=== PATIENT | female | born 2005 | race African-American/Black ===

== ENCOUNTER 2023-09-24 08:38 | Outpatient (CLI) | payer OTHER, SELFPAY | END 2023-09-24 08:39 | disposition home or self-care (01) | PROVIDERS: Visit Provider Family Medicine | DX: R10.9 Unspecified abdominal pain (principal) | CPT/HCPCS: A0425; A0427 ==

== ENCOUNTER 2023-09-24 09:13 | Observation (INO) | payer OTHER, SELFPAY ==
[2023-09-24] VITALS (16 sets, daily range): BP systolic 102–128; BP diastolic 57–81; PULSE 72–92; RESP 16–20; TEMP 36.6–36.7; O2SAT 99–100; BMI 22.3
--- NOTE | 2023-09-24 09:52 | ED_ITS ---
HPI - Abdominal Pain General Time Seen by Provider: 09:52 Date Seen: 09/24/23 Chief Complaint: Abdominal Pain Stated Complaint: Abdominal pain Time Seen by Provider: 09/24/23 09:51 Source: patient, EMS and RN notes reviewed Mode of arrival: EMS Limitations: no limitations History of Present Illness HPI narrative: This 18-year-old female was brought in from home by EMS for right-sided abdominal pain. It started overnight, disrupted sleep. She has noted no fevers or chills. She has urinated, noted no hematuria or changes with urination. She has never been sexually active. No prior history of abdominal surgeries, no history of ovarian cysts, on no contraceptives. Denies any nausea vomiting or diarrhea to date with this. Pain was severe, EMS gave her 50 mcg of fentanyl in route, improved. Pain was escalating after getting here. Will be giving her further fentanyl. She notes it is right-sided abdominal pain, worse in the lower abdomen. MD elicited complaint: abdominal pain Pertinent past history: none Related Data Patient : No Previous Rx's Medication Instructions Recorded acetaminophen 325 mg tablet 650 mg (2 x 325 mg) PO Q6H PRN 09/25/23 Pain #30 tabs ibuprofen 600 mg tablet 600 mg PO Q6H PRN Pain #30 tabs 09/25/23 oxycodone 5 mg tablet 5 mg PO Q4H PRN Pain 3 days #12 09/25/23 tabs simethicone 80 mg chewable tablet 160 mg (2 x 80 mg) PO Q4H PRN 09/25/23 Abdominal Distention #30 tabs Allergies Allergy/AdvReac Type Severity Reaction Status Date / Time No Known Drug Allergies Allergy Verified 09/24/23 11:07 Review of Systems Status of ROS Reports: 6 or more systems reviewed and unremarkable except as noted in History and below PFSH PFSH Social History What is your current living situation?: I presently have a place to live Problems where you live: no known problems Problems where you live details: NA In the past 12 months, utilities in danger of being shut off: no In past 12 months, lack of transportation kept you from medical appts, meetings, work, or getting things needed for daily living: no In the past 12 mos, have been you worried that your food would run out before you had money to buy more?: never true In the past 12 mos, the food you bought just didn't last and you didn't have money to buy more?: never true Highest level of school completed/degree received: some college, no degree Smoking Status: Never smoker Do you use any of these nicotine containing products: None How often do you have a drink containing alcohol: never How often do you have six or more drinks on one occasion: Never AUDIT-C Alcohol total score: 0 Non-prescribed substance use: denies use How often does anyone, including family, friends and others, physically hurt you : never How often does anyone, including family, friends and others, insult or talk down to you: never How often does anyone, including family, friends and others, threaten you with harm: never How often does anyone, including family, friends and others, scream or curse at you: never service: No Exam Const: Vital Signs, click to edit/add: Vital Signs - 24 hr 09/24/23 09:20 09/24/23 09:25 09/24/23 09:30 Temperature 97.8 F Pulse Rate [Right Pulse Oximeter] 79 87 92 Respiratory Rate 16 18 18 Blood Pressure [Ri ght Upper Arm] 117/74 123/66 128/81 Pulse Oximetry 100 100 100 Oxygen Delivery Me thod Room Air Room Air Room Air 09/24/23 10:00 09/24/23 10:05 09/24/23 10:30 Temperature Pulse Rate [Right Pulse Oximeter] 81 76 Respiratory Rate 18 18 Blood Pressure [Ri ght Upper Arm] 102/59 L 120/71 Pulse Oximetry 100 99 99 Oxygen Delivery Nv thod Room Air Room Air 09/24/23 11:00 09/24/23 11:30 09/24/23 12:00 Temperature Pulse Rate [Right Pulse Oximeter] 83 87 88 Respiratory Rate 16 18 18 Blood Pressure [Ri ght Upper Arm] 116/62 124/80 127/81 Pulse Oximetry 100 100 100 Oxygen Delivery Nv thod Room Air Room Air Room Air 09/24/23 12:30 09/24/23 13:30 09/24/23 14:00 Temperature Pulse Rate [Right Pulse Oximeter] 90 81 85 Respiratory Rate 20 18 18 Blood Pressure [Ri ght Upper Arm] 123/77 114/63 112/73 Pulse Oximetry 100 100 99 Oxygen Delivery Me thod Room Air Room Air Room Air Patient is seen in exam room 5, initially a little tachypneic and complaining of worsening abdominal pain. Nursing staff did get her further fentanyl, after was calm, relaxed. She is alert interactive, no apparent distress after the fentanyl fentanyl is giving her little nausea, will make sure we get her some Zofran. Pupils are equal round, sclera clear, symmetrical facial function, speech normal. Lungs are clear, no tachypnea at this time after her pain medicine. CV regular rate and rhythm, no murmur, normal S1 and S2, no S3 or S4. Abdomen is flat, nondistended, she has mild right upper quadrant tenderness which increases to more profound right lower quadrant tenderness where I would say she does have guarding, potential rebound. I do hear bowel sounds. She does follow commands, moving extremities. Documenting provider has reviewed patient's vital signs: yes Course Course ED Course: 18-year-old female with right-sided abdominal pain that is worse in the right lower quadrant. We did discuss appendicitis. Other potential etiologies are u rinary system, ovarian or pelvic issues. She will be monitored on pulse oximetry a she has been given IV fentanyl. Will initiate IV fluids, we did re- dose her sentinel here with 50 mcg for further pain management after EMS is 1st dose. Will give her 4 mg IV Zofran for nausea control. Will get appropriate blood work, will ensure negative test but I do understand that she states she has never been sexually active. Reevaluation(s) Time of Reevaluation #1: 12:26 Reevaluation #1: Reviewed with patient that she will be getting an ultrasound in the rationale for this. She states her pain is actually getting better. Time of Reevaluation #2: 13:09 Reevaluation #2: Re-evaluated patient, more comfortable at rest but still quite tender on palpation. Will page OB Gyne on-call. Consultations Consultation #1: Radiologist did call me, there changes concerning for potential torsion with probable large right ovarian cyst. Place the order but notified Radiology that I did need a stat ultrasound. Will go check on patient to see where her pain as as well. Time: 12:24 Consultation #2: Spoke with Dr. Alvares on-call for warp spooler. He will come consult on patient. Hopefully just pain from the hemorrhagic cyst. Time: 13:09 Consultation #3: Dr. Alvares has seen and evaluated the patient. He plans on admission overnight, probable repeat ultrasound in the morning and pain management. He states that her pain is significant enough that he does not even feel she would be able to get up to ambulate. Thus, we certainly appreciate his acceptance of this patient to the hospital for ongoing pain management and serial examination to continue to monitor for ovarian torsion. We discussed some further pain management with use of Toradol for her. This may help with some of the inflammatory change. Time: 13:55 Vital Signs Vital signs: Initial Vital Signs Pulse Rate 79 09/24/23 09:20 Respiratory Rate 16 09/24/23 09:20 Respiratory Effort Normal, Spontaneous, Non-Labored 09/24/23 09:20 Respiratory Depth Normal 09/24/23 09:20 Respiratory Pattern Normal 09/24/23 09:20 Blood Pressure 117/74 09/24/23 09:20 Blood Pressure Mean 88 09/24/23 09:20 Blood Pressure Position Supine 09/24/23 09:20 Pulse Oximetry 100 09/24/23 09:20 Oxygen Delivery Method Room Air 09/24/23 09:20 Vital Signs Pulse Rate 79 09/24/23 09:20 Respiratory Rate 16 09/24/23 09:20 Blood Pressure 117/74 09/24/23 09:20 Pulse Oximetry 100 09/24/23 09:20 Oxygen Delivery Method Room Air 09/24/23 09:20 Temperature 98.4 F 09/25/23 11:00 Pulse Rate 74 09/25/23 11:00 Respiratory Rate 16 09/25/23 11:00 Blood Pressure 113/67 09/25/23 11:00 Pulse Oximetry 99 09/25/23 11:00 Oxygen Delivery Method Room Air 09/25/23 11:00 MDM - Abdominal Pain Lab Data Attestation: I reviewed the patient's lab results. Labs: Lab Results 09/24/23 09/24/23 Range/Units 10:06 10:10 WBC 9.87 (4.50-11.00) K/uL RBC 3.60 L (4.00-5.20) m/uL Hgb 10.3 L (12.0-16.0) gm/dL Hct 32.0 L (33.0-51.0) % MCV 89 (80-100) fL MCH 29 (26-34) pg MCHC 32 (32-36) gm/dL RDW Coeff of Gurjit 15.1 (11.5-15.5) % Plt Count 318 (140-440) K/uL Neut % (Auto) 76.3 H (42.0-72.0) % Lymph % (Auto) 16.2 L (20-44) % [place] % (Auto) 7.2 (0.0-11.0) % Eos % (Auto) 0.0 (0.0-7.0) % Baso % (Auto) 0.3 (0.0-3.0) % Neut # (Auto) 7.50 H (1.7-7.0) K/uL Lymph # (Auto) 1.60 (0.90-2.90) K/uL [place] # (Auto) 0.70 (0.00-0.90) K/UL Eos # (Auto) 0.00 (0.00-0.50) K/uL Baso # (Auto) 0.03 (0.00-0.30) K/uL Abs Immat Gran (auto) 0.00 (0.00-0.30) K/uL Imm/Tot Granulo (auto) 0.0 % Sodium 137 (135-149) mmol/L Potassium 3.5 L (3.6-5.1) mmol/L Chloride 111 (96-114) mmol/L Carbon Dioxide 19 L (20-32) mmol/L Anion Gap 7 (7-15) mEq/L BUN 9 (5-24) mg/dL Creatinine 0.6 (0.5-1.5) mg/dL Estimated Creat Clear 129.15 Estimated GFR 132 ml/min Glucose 109 (60-115) mg/dL Lactate 0.7 (0.5-1.9) mmol/L Calcium 8.3 L (8.4-10.6) mg/dL Total Bilirubin 0.6 (0.1-1.5) mg/dL AST 25 (12-35) U/L ALT 13 (4-35) U/L Alkaline Phosphatase 44 (40-150) U/L C-Reactive Protein < 0.5 L (0.5-1.0) mg/dL Total Protein 6.4 (6.0-8.3) g/dL Albumin 3.5 (3.3-5.0) g/dL HCG, Qual Negative (Negative) Urine Color Yellow (Yellow) Urine Appearance Clear (Clear) Urine pH 5.5 (5.0-8.5) Ur Specific [place] 1.010 (1.000-1.030) Urine Protein Negative (Negative) Urine Glucose (UA) Negative (Negative) Urine Ketones Negative (Negative) Urine Blood Negative (Negative) Urine Nitrite Negative (Negative) Urine Bilirubin Negative (Negative) Urine Urobilinogen 0.2 (0.2-1.0) Ur Leukocyte Esterase Trace A (Negative) Urine RBC 0-2 (0-2) Urine WBC 0-2 (0-5) Ur Squamous Epith Cells None (None-Few) Urine Bacteria None (None) Imaging Data CT scan - abdomen: Attestation: I have reviewed the pertinent imaging results. Radiologist's impression: Patient: [facility] Facility:?[facility] Patient ID:?[id number] Site Patient ID:?[id number]. Site :?2003 Study:?CT Abdomen/Pelvis W/ 64CC ISOVUE 370-09/24/2023 11:09:31 AM Ordering Physician:Bryant Shields Final Report: INDICATION: Right-sided abdominal pain. TECHNIQUE: CT of the abdomen and pelvis with 64 cc Isovue 370 IV contrast. Coronal and sagittal reconstructions. COMPARISON: None. FINDINGS: Subcentimeter hypodensity in the inferior right hepatic lobe is too small to characterize but likely benign. The liver is otherwise unremarkable. Distended gallbladder. No gallbladder wall thickening or calcified gallstones. No biliary dilation. The spleen, pancreas, and adrenal glands are negative. Hepatic and portal veins are patent. Symmetric enhancement of the kidneys. No hydronephrosis or ureteral dilation. No obstructing urinary calculi identified. The bladder is normal in appearance. Uterus is unremarkable. There is a 4.9 x 5.3 x 7.9 cm cystic lesion in the right anterior pelvis with prominent surrounding soft tissue density (series 2 image 106 and series 4 image 31). Findings likely represent a large right ovarian cyst with engorged parenchyma. No small bowel dilation. Large amount of stool throughout the colon. Negative appendix. No intraperitoneal free air. There is a small to moderate amount of free fluid throughout the abdomen and pelvis. No lymphadenopathy. Retroaortic left renal vein. The bones are unremarkable. The lung bases are clear. IMPRESSION: 1. Large cystic lesion in the right pelvis with prominent surrounding soft tissue density. Findings are suspicious for a right ovarian cyst with engorged parenchyma, although differential considerations also include a solid and cystic ovarian neoplasm. Recommend further evaluation with pelvic ultrasound including Doppler evaluation of the ovaries to exclude torsion. 2. Small to moderate amount of free fluid throughout the abdomen and pelvis. 3. Distended gallbladder. 4. Findings discussed with Alyson Kemp at 12:24 p.m. on 09/24/2023. Please note that all CT scans at this facility use dose modulation, iterative reconstruction, and/or weight-based dosing when appropriate to reduce radiation dose to as low as reasonably achievable. Dictated by Antonieta Morgan MD @ 09/24/2023 12:26:06 PM (Electronic Signature) US pelvis: Attestation: I have reviewed the pertinent imaging results. Radiologist's impression: Patient: KATELIN PUGH Facility:?[facility] Patient ID:?[id number] Site Patient ID:?[id number]. Site :?2003 Study:?US Pelvis TRANSABDOMINAL-09/24/2023 12:55:38 PM Ordering Physician:?Viridiana Shields Final Report: INDICATION: Pain COMPARISON: Same-day CT. TECHNIQUE: TA: Multiple transverse and longitudinal transabdominal images of the pelvis are performed using the distended bladder as an acoustic window. Color-flow and spectral Doppler imaging of both ovaries is performed. FINDINGS: Reported last menstrual period: 08/31/2023. The uterus is normal in size and position and measures 8.1 x 3.7 x 6.0 cm. No uterine masses. The endometrial stripe measures 1 cm in double thickness. No endometrial masses. The cervix is normal. The right ovary measures 10.3 x 5.9 x 9.0 cm, for a volume of x mL. Right ovarian lesion measures 8.5 x 5.4 x 7.9 cm. The lesion has some lace-like internal hypoechoic echoes as well as a peripheral crescentic fluid attenuation portion. Findings are consistent with a hemorrhagic cyst. There is no internal vascularity within the cyst. No worrisome cystic or solid mass. There is normal arterial and venous color Doppler flow and normal arterial and venous waveforms on duplex Doppler. The left ovary measures 4.6 x 2.2 x 2.8 cm, for a volume of x mL. Physiologic appearance without a dominant cystic lesion or solid ovarian/adnexal mass. There is normal arterial and venous color Doppler flow and normal arterial and venous waveforms on duplex Doppler. Small free fluid. IMPRESSION: There is an 8.5 cm right ovarian lesion consistent with a hemorrhagic cyst. Normal right ovarian blood flow without findings of ovarian torsion. Dictated by Araceli Reddy MD @ 09/24/2023 2:08:24 PM (Electronic Signature) Discharge Plan Discharge Clinical Impression: Hemorrhagic cyst of right ovary Patient Disposition: Admitted As Observation Condition: Stable Activity Level: Activity as Tolerated Discharge Diet: Regular
--- NOTE | 2023-09-24 09:58 | ED.NURSE ---
given Fent 50mcg IVP now for pain in the lower abdomen. 10/[address] Germain.
--- NOTE | 2023-09-24 10:05 | CRLHL7_ITS ---
For Patients: As a result of the Century Cures Act, medical imaging exams and procedure reports are released immediately into your electronic medical record. You may view this report before your referring provider. If you have questions, please contact your health care provider. INDICATION: Right-sided abdominal pain. TECHNIQUE: CT of the abdomen and pelvis with 64 cc Isovue 370 IV contrast. Coronal and sagittal reconstructions. COMPARISON: None. FINDINGS: Subcentimeter hypodensity in the inferior right hepatic lobe is too small to characterize but likely benign. The liver is otherwise unremarkable. Distended gallbladder. No gallbladder wall thickening or calcified gallstones. No biliary dilation. The spleen, pancreas, and adrenal glands are negative. Hepatic and portal veins are patent. Symmetric enhancement of the kidneys. No hydronephrosis or ureteral dilation. No obstructing urinary calculi identified. The bladder is normal in appearance. Uterus is unremarkable. There is a 4.9 x 5.3 x 7.9 cm cystic lesion in the right anterior pelvis with prominent surrounding soft tissue density (series 2 image 106 and series 4 image 31). Findings likely represent a large right ovarian cyst with engorged parenchyma. No small bowel dilation. Large amount of stool throughout the colon. Negative appendix. No intraperitoneal free air. There is a small to moderate amount of free fluid throughout the abdomen and pelvis. No lymphadenopathy. Retroaortic left renal vein. The bones are unremarkable. The lung bases are clear. IMPRESSION: 1. Large cystic lesion in the right pelvis with prominent surrounding soft tissue density. Findings are suspicious for a right ovarian cyst with engorged parenchyma, although differential considerations also include a solid and cystic ovarian neoplasm. Recommend further evaluation with pelvic ultrasound including Doppler evaluation of the ovaries to exclude torsion. 2. Small to moderate amount of free fluid throughout the abdomen and pelvis. 3. Distended gallbladder. 4. Findings discussed with Alyson Kemp at 12:24 p.m. on 09/24/2023. Please note that all CT scans at this facility use dose modulation, iterative reconstruction, and/or weight-based dosing when appropriate to reduce radiation dose to as low as reasonably achievable. Dictated by Antonieta Morgan MD @ 09/24/2023 12:26:06 PM (Electronically Signed)
[2023-09-24 10:19] LABS: Lactate* 0.7 mmol/L (0.5-1.9)
[2023-09-24] MEDS: 0.9 % SODIUM CHLORIDE 1000 ml 1,000 ML 500 ML IV (10:19)
[2023-09-24] MEDS: ONDANSETRON 2 MG/ML inj 4 MG IVP (10:19)
[2023-09-24] MEDS: fentaNYL 100 MCG/2 ML inj 50 MCG IVP (10:20)
[2023-09-24 10:23] LABS: Basophils Absolute Auto 0.03 K/uL (0.00-0.30); Basophils Percent Auto 0.3 % (0.0-3.0); Hemoglobin* 10.3 gm/dL (12.0-16.0); Lymphocytes Percent Auto 16.2 % (20-44); Mean Corpuscular HGB Conc 32 gm/dL (32-36); Mean Corpuscular Hemoglobin 29 pg (26-34); Mean Corpuscular Volume 89 fL (80-100); Monocytes Percent Auto 7.2 % (0.0-11.0); Neutrophils Percent Auto 76.3 % (42.0-72.0); Platelet Count* 318 K/uL (140-440); RDW Coefficient of Variation % 15.1 % (11.5-15.5); Slide Review Reflex No; White Blood Count* 9.87 K/uL (4.50-11.00)
[2023-09-24 10:37] LABS: HCG Qualitative Serum* Negative (Negative)
[2023-09-24 10:43] LABS: Albumin* 3.5 g/dL (3.3-5.0); Chloride* 111 mmol/L (96-114)
[2023-09-24 10:44] LABS: Potassium* 3.5 mmol/L (3.6-5.1); Sodium* 137 mmol/L (135-149)
[2023-09-24 10:46] LABS: Alkaline Phosphatase* 44 U/L (40-150); Anion Gap 7 mEq/L (7-15); Aspartate Amino Transferase* 25 U/L (12-35); Bilirubin Total* 0.6 mg/dL (0.1-1.5); Blood Urea Nitrogen* 9 mg/dL (5-24); Carbon Dioxide* 19 mmol/L (20-32); Creatinine* 0.6 mg/dL (0.5-1.5); Est. Creatinine Clearance* 129.15; Estimated Glomerular Filt Rate 132 ml/min; Glucose* 109 mg/dL (60-115); Total Protein* 6.4 g/dL (6.0-8.3)
[2023-09-24 10:47] LABS: Alanine Aminotransferase* 13 U/L (4-35); Calcium* 8.3 mg/dL (8.4-10.6)
[2023-09-24 10:52] LABS: C Reactive Protein* < 0.5 mg/dL (0.5-1.0)
--- NOTE | 2023-09-24 12:23 | CRLHL7_ITS ---
For Patients: As a result of the Century Cures Act, medical imaging exams and procedure reports are released immediately into your electronic medical record. You may view this report before your referring provider. If you have questions, please contact your health care provider. INDICATION: Pain COMPARISON: Same-day CT. TECHNIQUE: TA: Multiple transverse and longitudinal transabdominal images of the pelvis are performed using the distended bladder as an acoustic window. Color-flow and spectral Doppler imaging of both ovaries is performed. FINDINGS: Reported last menstrual period: 08/31/2023. The uterus is normal in size and position and measures 8.1 x 3.7 x 6.0 cm. No uterine masses. The endometrial stripe measures 1 cm in double thickness. No endometrial masses. The cervix is normal. The right ovary measures 10.3 x 5.9 x 9.0 cm, for a volume of x mL. Right ovarian lesion measures 8.5 x 5.4 x 7.9 cm. The lesion has some lace-like internal hypoechoic echoes as well as a peripheral crescentic fluid attenuation portion. Findings are consistent with a hemorrhagic cyst. There is no internal vascularity within the cyst. No worrisome cystic or solid mass. There is normal arterial and venous color Doppler flow and normal arterial and venous waveforms on duplex Doppler. The left ovary measures 4.6 x 2.2 x 2.8 cm, for a volume of x mL. Physiologic appearance without a dominant cystic lesion or solid ovarian/adnexal mass. There is normal arterial and venous color Doppler flow and normal arterial and venous waveforms on duplex Doppler. Small free fluid. IMPRESSION: There is an 8.5 cm right ovarian lesion consistent with a hemorrhagic cyst. Normal right ovarian blood flow without findings of ovarian torsion. Dictated by Araceli Reddy MD @ 09/24/2023 2:08:24 PM (Electronically Signed)
[2023-09-24] MEDS: KETOROLAC 15 MG/ML inj IVP (13:50)
--- NOTE | 2023-09-24 15:16 | P.GYNHP_ITS ---
DOCUMENT REVIEW SPECIALIST - H&P:HPI Medical History of Present Illness Time Seen by Provider: 13:45 Date Seen: 09/24/23 Reason for admission: pelvic pain Narrative: Arabella Gonzalez is a 18 year old female not using contraception who presented to the [facility] Emergency Department via EMS at 8:00 a.m. this morning due to severe and increasing abdominal pain. She reports the pain started in her upper abdomen around 20:00 yesterday evening while she was practicing dance, then spontaneously improved until it worsened again at 02:00 waking her from sleep though she was able to fall back to sleep. She then woke again around 0630 with the pain becoming worse, she took ibuprofen, and then called an ambulance to the hospital. The pain has been persistently severe though she did get some relief from fentanyl, feels that she is unable to move around due to severity of pain. Pain is generalized throughout her abdomen but worse in the right lower quadrant, does not radiate anywhere else, no significant associated symptoms of nausea, vaginal bleeding. Patient does note decreased appetite though she does feel thirsty at this time. Patient has not felt pain like this in the past. She has not yet been sexually active. Patient denies fever, headache, chest pain, shortness of breath, weakness, numbness. Her last menstrual period was 08/31/2023 and normal for her, regular. Last bowel movement yesterday and normal Review of Systems Status of ROS: Reports: 10 or more systems reviewed and unremarkable except as noted in History and below Meds Home Medications and Allergies Home Medications Medication Instructions Recorded Confirmed Type No Known Home Medications 09/24/23 09/24/23 History Allergies Allergy/AdvReac Type Severity Reaction Status Date / Time No Known Drug Allergies Allergy Verified 09/24/23 11:07 [facility] Active Problems (Updated 09/24/23 @ 17:26 by Homero Alvares MD) Constipation, slow transit (Acute) Secondary to hemoperitoneum and bowel irritation from hemorrhagic cyst ?K59.01 - Slow transit constipation (ICD-10) Abdominal pain (Acute) Secondary to hemoperitoneum from hemorrhagic cyst ?R10.9 - Unspecified abdominal pain (ICD-10) Hemorrhagic cyst of right ovary (Acute) 8.5 cm cyst on ultrasound ruptured with evidence of blood in pelvis. Discussed diagnosis with patient, consistent with presentation, symptoms, exam and imaging. No evidence of torsion at this time. ?N83.201 - Unspecified ovarian cyst, right side (ICD-10) Social History What is your current living situation?: I presently have a place to live Problems where you live: no known problems Problems where you live details: NA In the past 12 months, utilities in danger of being shut off: no In past 12 months, lack of transportation kept you from medical appts, meetings, work, or getting things needed for daily living: no In the past 12 mos, have been you worried that your food would run out before you had money to buy more?: never true In the past 12 mos, the food you bought just didn't last and you didn't have money to buy more?: never true Highest level of school completed/degree received: some college, no degree Smoking Status: Never smoker Do you use any of these nicotine containing products: None How often do you have a drink containing alcohol: never How often do you have six or more drinks on one occasion: Never AUDIT-C Alcohol total score: 0 Non-prescribed substance use: denies use How often does anyone, including family, friends and others, physically hurt you : never How often does anyone, including family, friends and others, insult or talk down to you: never How often does anyone, including family, friends and others, threaten you with harm: never How often does anyone, including family, friends and others, scream or curse at you: never service: No Reproductive Health History Date of last pap smear: Has not started yet : 0 Para: 0 History of sexually transmitted diseases: No DOCUMENT REVIEW SPECIALIST - Exam Physical Exam: Vital signs: Temp Pulse Resp BP Pulse Ox O2 Del Method 97.8 F 72 20 110/69 100 Room Air 09/24/23 09:25 09/24/23 14:34 09/24/23 14:34 09/24/23 14:34 09/24/23 14:34 09/24/23 14:34 Constitutional: Constitutional: moderate distress, thin, diaphoretic and cooperative Routine Chest/Breast/Axilla Exam: Chest wall: Absent tenderness Routine Respiratory Exam: Respiratory: Present CTA bilaterally Comments: No increased work of breathing, easily conversant Routine Cardiovascular Exam: Cardiovascular: Present RRR Routine Abdominal Exam: Comments: Soft, mildly distended, tender to palpation throughout greatest in right lower quadrant with involuntary guarding, positive rebound, unable to assess for right lower quadrant mass due to pain, no other masses Routine Exam: Comments: Exam deferred due to virginal status Routine Skin Exam: Skin: Present intact; Absent scars or wounds Routine Neurological Exam: Neurological: Present alert and oriented X3 Routine Psychiatric Exam: Psychiatric: Present normal affect, normal thought process and cooperative DOCUMENT REVIEW SPECIALIST - Results Labs Labs: Short CBC 09/24/23 Range/Units 10:10 WBC 9.87 (4.50-11.00) K/uL Hgb 10.3 L (12.0-16.0) gm/dL Hct 32.0 L (33.0-51.0) % Plt Count 318 (140-440) K/uL BMP 09/24/23 10:10 Sodium 137 Potassium 3.5 L Chloride 111 Carbon Dioxide 19 L BUN 9 Creatinine 0.6 Glucose 109 Calcium 8.3 L Liver Function 09/24/23 Range/Units 10:10 Total Bilirubin 0.6 (0.1-1.5) mg/dL AST 25 (12-35) U/L ALT 13 (4-35) U/L Alkaline Phosphatase 44 (40-150) U/L Albumin 3.5 (3.3-5.0) g/dL Imaging CT scan - pelvis: Attestation: I have reviewed the pertinent imaging results. My impression: No free air in abdomen, copious gas in colon, right ovary enlarged with cystic mass to 8 cm, free fluid in the pelvis, normal uterus and left ovary US - pelvis: Attestation: I have reviewed the pertinent imaging results. My impression: Normal uterus and left ovary, right ovary with 8.5 cm hemorrhagic cyst, no evidence of torsion, moderate free fluid in the pelvis Assessment and Plan Assessment and plan (1) Hemorrhagic cyst of right ovary: Problem comment: 8.5 cm cyst on ultrasound ruptured with evidence of blood in pelvis. Discussed diagnosis with patient, consistent with presentation, symptoms, exam and imaging. No evidence of torsion at this time. Status: Acute Assessment and Plan: Acute symptomatic control with analgesics including opioids and NSAIDs, will use IV at this time due to possibility of laparoscopic surgery in the setting of torsion, repeat ultrasound in a.m. and if continued no sign of torsion transition patient to p.o. medications and discharged home. Recommend follow-up in clinic to discuss long-term ovulatory suppression with systemic progesterone (2) Abdominal pain: Problem comment: Secondary to hemoperitoneum from hemorrhagic cyst Status: Acute (3) Constipation, slow transit: Problem comment: Secondary to hemoperitoneum and bowel irritation from hemorrhagic cyst Status: Acute Assessment and Plan: Expectant management, will resolve with reabsorption of hemoperitoneum
[2023-09-24 15:48] LABS: Appearance Urine Clear (Clear); Bilirubin Urine Negative (Negative); Blood Urine Negative (Negative); Color Urine Yellow (Yellow); Glucose Urine Negative (Negative); Ketones Urine Negative (Negative); Leukocyte Esterase Urine Trace (Negative); Nitrite Urine Negative (Negative); Protein Urine Negative (Negative); Urobilinogen Urine 0.2 (0.2-1.0); pH Urine 5.5 (5.0-8.5)
[2023-09-24] MEDS: LACTATED RINGERS 1000 ML 1,000 ML 125 ML IV ×2 (16:26→23:52)
[2023-09-24 16:54] LABS: RBC Urine 0-2 (0-2); WBC Urine 0-2 (0-5)
[2023-09-24] MEDS: PANTOPRAZOLE SODIUM 40 MG INJ IVP (16:57)
--- NOTE | 2023-09-24 19:53 | PC.NURSE ---
Nursing Care Hours: [id number] Pt this shift arrived from ED. Alert and oriented, calm and cooperative. Independent ambulation. IV patent. VSS. Pain rated 3/10, no pain meds given. Denies nausea. Abdomen active x4, soft palpation. Patient remained resting in bed most of shift.
[2023-09-25 03:00] VITALS: RESP 16
--- NOTE | 2023-09-25 05:06 | PC.NURSE ---
[id number] Pt slept well during night, denied any pain entire shift. independent in room, no difficutly voiding. no N/V. NPO with ice chips for comfort.
[2023-09-25 07:45] VITALS: BP 122/58; PULSE 64; RESP 16; TEMP 36.6; O2SAT 100
--- NOTE | 2023-09-25 08:00 | CRLHL7_ITS ---
For Patients: As a result of the Century Cures Act, medical imaging exams and procedure reports are released immediately into your electronic medical record. You may view this report before your referring provider. If you have questions, please contact your health care provider. Indication: Follow up abnormal right ovary. Technique: Sonography of the pelvis was performed. The study was performed transabdominally. Grayscale and Doppler imaging was acquired Comparison: September 24, 2023 Findings: The uterus measures 8.1 x 3.8 x 6.0 centimeters. No myometrial mass. Endometrium measures 1.1 centimeters which is normal. The left ovary measures 4.7 x 2.2 x 2.8 centimeters. No focal mass. Normal arterial and venous flow The right ovary is enlarged measuring 10.6 x 5.2 x 9.2 centimeters. This contains a complex cystic mass measuring 8.6 x 4.5 x 7.9 centimeters. The size is similar to the prior study. Arterial and venous flow was demonstrated. This suggests there is no torsion during the time course of this examination. The right adnexa masses statistically most likely a hemorrhagic cyst. The other possibilities including endometriomas or complex cystic neoplasms. Careful clinical and imaging follow-up regarding this lesion is recommended. If this requires further characterization by imaging, consider MRI. Re-demonstration of a moderate amount of free fluid in the cul-de-sac. Impression: Complex cystic right ovarian mass unchanged in size without evidence of torsion during the time course of this examination. Please review the comment regarding this lesion. Dictated by Frank Sahni MD @ 09/25/2023 7:28:37 AM (Electronically Signed)
[2023-09-25] MEDS: LACTATED RINGERS 1000 ML 1,000 ML 125 ML IV (08:04)
--- NOTE | 2023-09-25 09:18 | P.DS_ITS ---
DS: Providers Provider Time Seen by Provider: 09:22 Date Seen: 09/25/23 Date of admission: 09/24/23 14:15 Primary care physician: Not a Local Provider Admitting Clinician: Homero Alvares MD Attending Physician on discharge: Homero Alvares MD Date of Discharge: 09/25/23 DS: Diagnosis Discharge Diagnosis (1) Constipation, slow transit: Status: Acute Problem details: Secondary to hemoperitoneum and bowel irritation from hemorrhagic cyst (2) Abdominal pain: Status: Acute Problem details: Secondary to hemoperitoneum from hemorrhagic cyst (3) Hemorrhagic cyst of right ovary: Status: Acute Problem details: 8.5 cm cyst on ultrasound ruptured with evidence of blood in pelvis. Discussed diagnosis with patient, consistent with presentation, symptoms, exam and imaging. No evidence of torsion at this time, and stable imaging on hospital day 2. [employer]-Discharge Summary Hospital Course Hospital Course Narrative: Patient is a 18 year old female admitted to observation on 09/24/2023 for ruptured right ovarian hemorrhagic cyst causing hemoperitoneum, abdominal pain, and constipation requiring IV pain medication and for repeat exams and imaging to evaluate possible ovarian torsion. She received IV fentanyl and ketorolac in the emergency department with some relief of her pain, followed by further doses of ketorolac on the observation floor. She received IV fluids and was kept NPO for the possibility of surgery. She was able to sleep intermittently overnight but her pain was improved and she did not request any further doses of pain medication. On the morning of hospital day 2 repeat pelvic ultrasound showed stable right ovarian hemorrhagic cyst with unchanged hemoperitoneum and normal venous and arterial blood flow. Patient was feeling much better, still with generalized abdominal pain but significantly decreased intensity, felt an appetite and able to tolerate solid intake, and was transition to oral pain medications in anticipation of discharge home. Patient reported some abdominal discomfort with urination but not urethral burning. Patient denied any fever, headache, shortness of breath, chest pain, nausea, vomiting, diarrhea, vaginal bleeding, numbness or weakness Time Spent with Patient Time attestation: Total time spent providing and/or coordinating discharge services: Time spent: Greater than 30 minutes [employer] - Exam Physical Exam: Vital signs: Temp Pulse Resp BP Pulse Ox O2 Del Method 97.9 F 73 16 108/57 L 99 Room Air 09/24/23 23:00 09/24/23 23:00 09/25/23 03:00 09/24/23 23:00 09/24/23 23:00 09/24/23 23:00 Constitutional: Constitutional: no acute distress, thin and cooperative Routine Abdominal Exam: Abdominal: Present distended, rebound and soft; Absent guarding Comments: Generalized tenderness to palpation decreased from yesterday, tender mass palpated in right lower quadrant [employer] - DS: Data Data Completed and Pending Completed studies during hospitalization: 09/25/2023 pelvic ultrasound: 10.5 cm right ovarian size containing an 8.5 cm hemorrhagic cyst with normal arterial and venous waveform blood flow, normal uterus and left ovary, moderate free fluid unchanged from prior day Labs on day of discharge: Labs from last 24 hours 09/24/23 09/24/23 10:10 10:06 WBC 9.87 RBC 3.60 L Hgb 10.3 L Hct 32.0 L MCV 89 MCH 29 MCHC 32 RDW Coeff of Gurjit 15.1 Plt Count 318 Neut % (Auto) 76.3 H Lymph % (Auto) 16.2 L [place] % (Auto) 7.2 Eos % (Auto) 0.0 Baso % (Auto) 0.3 Neut # (Auto) 7.50 H Lymph # (Auto) 1.60 [place] # (Auto) 0.70 Eos # (Auto) 0.00 Baso # (Auto) 0.03 Abs Immat Gran (auto) 0.00 Imm/Tot Granulo (auto) 0.0 Sodium 137 Potassium 3.5 L Chloride 111 Carbon Dioxide 19 L Anion Gap 7 BUN 9 Creatinine 0.6 Estimated Creat Clear 129.15 Estimated GFR 132 Glucose 109 Lactate 0.7 Calcium 8.3 L Total Bilirubin 0.6 AST 25 ALT 13 Alkaline Phosphatase 44 C-Reactive Protein < 0.5 L Total Protein 6.4 Albumin 3.5 HCG, Qual Negative Urine Color Yellow Urine Appearance Clear Urine pH 5.5 Ur Specific [place] 1.010 Urine Protein Negative Urine Glucose (UA) Negative Urine Ketones Negative Urine Blood Negative Urine Nitrite Negative Urine Bilirubin Negative Urine Urobilinogen 0.2 Ur Leukocyte Esterase Trace A Urine RBC 0-2 Urine WBC 0-2 Ur Squamous Epith Cells None Urine Bacteria None Discharge Plan Discharge Disposition: Home, Self-Care Date of Admission: 09/24/23 14:15 Attending Provider on Discharge: Homero Alvares Primary Care Provider: Provider,Not a Local Condition: Stable Anticipated Discharge Date/Time: 09/25/23 14:31 Discharge Medications: New acetaminophen 325 mg Tablet 650 mg PO Q6H PRN (Reason: Pain) Qty: 30 0RF ibuprofen 600 mg Tablet 600 mg PO Q6H PRN (Reason: Pain) Qty: 30 0RF simethicone 80 mg Tablet,Chewable 160 mg PO Q4H PRN (Reason: Abdominal Distention) Qty: 30 0RF oxycodone 5 mg Tablet 5 mg PO Q4H PRN (Reason: Pain) 3 Days Qty: 12 0RF Discharge Orders: Discharge Order (Routine); Ordered 09/25/23 Ordered By: Homero Alvares Patient Education: Acetaminophen (By mouth), Ibuprofen (By mouth), Simethicone (By mouth), Oxycodone, Rapid Release (By mouth), Ruptured Ovarian Cyst (GEN) Additional Instructions: Make follow-up appointment at [facility] in 1 to 2 weeks to follow-up condition and discuss ovulatory suppression for future prevention of ovarian cysts Call clinic if you have increasing pain despite pain medications, fevers 100.4F or higher, persistent nausea and vomiting Activity Level: Activity as Tolerated Discharge Diet: Regular Follow Up Appointments: [facility] [Provider Group] - None (Follow-up from observation stay for ruptured right ovarian hemorrhagic cyst) Dorothy Zeng MD [Staff Physician] - 10/09/23 9:30 am ([facility] for follow-up from observation stay for ruptured right ovarian hemorrhagic cyst.) Provider,Not a Local [Primary Care Provider] - Forms: [employer] Info Instructions
[2023-09-25] MEDS: IBUPROFEN 600 MG TABLET PO (10:01)
[2023-09-25 11:00] VITALS: BP 113/67; PULSE 74; RESP 16; TEMP 36.9; O2SAT 99
[2023-09-25] MEDS: ACETAMINOPHEN 325 MG TABLET 650 MG PO (12:56)
--- NOTE | 2023-09-25 16:29 | PC.NURSE ---
shift note: vss stable. pt afeb. pt up indept in cid. pt states she has pain after urination. OBGYN notified. pt passing flatus, pt tolerating regular diet. IV dc'd intact. Reviewed dc instructions and copies sent with pt. Belongings sent with pt after review.
== END 2023-09-25 14:00 | disposition home or self-care (01) ==
LOC: ED 13:54 → MEDSURG 14:16
PROVIDERS: Admitting Provider Internal Medicine; Emergency Provider Family Medicine; Visit Provider Internal Medicine
DX: N83.291 Other ovarian cyst, right side (principal); K59.01 Slow transit constipation; K66.1 Hemoperitoneum; K58.9 Irritable bowel syndrome, unspecified; R10.31 Right lower quadrant pain
CPT/HCPCS: 36415; 74177; 76856; 80053; 81001; 83605; 84703; 85025; 86140; 93976; 94761; 96361; 96374; 96375; 99284; 99285; A9270; C9113; G0378; J1885; J2405; J3010; J7030; J7120; Q9967

== ENCOUNTER 2023-10-09 09:41 | Outpatient (REF) | payer OTHER, SELFPAY | END 2023-10-09 09:42 | disposition home or self-care (01) | LOC: NFLDREF 09:41 | PROVIDERS: Visit Provider Obstetrics & Gynecology | DX: R10.9 Unspecified abdominal pain (principal); N83.201 Unspecified ovarian cyst, right side | CPT/HCPCS: 87086 ==

== ENCOUNTER 2023-11-09 09:08 | Outpatient (CLI) | payer OTHER, SELFPAY ==
--- NOTE | 2023-11-09 09:15 | CRLHL7_ITS ---
For Patients: As a result of the Century Cures Act, medical imaging exams and procedure reports are released immediately into your electronic medical record. You may view this report before your referring provider. If you have questions, please contact your health care provider. INDICATION: f/u right ovarian hemorrhagic cyst 09/25/2023 TECHNIQUE: 2D garsia scale and color Doppler images were acquired of the pelvis using a transabdominal approach. FINDINGS: Sonographic images demonstrate a normal size and smooth outer contour of the uterus. Uterus measures 6.6 cm in length by 3 point cm in AP diameter by 5.4 cm in transverse dimension. The myometrium has a normal uniform echotexture. The endometrial lining measures 10 mm in composite thickness. The right ovary measures 4.9 x 4.3 x 5.8 cm in size and the left ovary measures 3.1 x 1.7 cm. The ovaries demonstrate normal arterial and venous blood flow on color Doppler analysis. There are no suspicious fluid collections within the cul-de-sac. Decreased size of hemorrhagic right ovarian cyst now measuring 2.2 x 1.7 x 2.2 cm, previously measuring 8.6 x 4.5 x 7.9 cm. IMPRESSION: Decreased size of right ovarian hemorrhagic cyst. Dictated by Jag Yun MD @ 11/09/2023 11:39:46 AM (Electronically Signed)
== END 2023-11-09 09:09 | disposition home or self-care (01) ==
LOC: US 09:09
PROVIDERS: Visit Provider Obstetrics & Gynecology
DX: N83.201 Unspecified ovarian cyst, right side (principal)
CPT/HCPCS: 76856; 93976